=== PATIENT | male | born 1965 | race African-American/Black ===

== ENCOUNTER 2024-03-10 12:16 | Inpatient (IN) | payer BC ==
[2024-03-10 12:59] VITALS: BMI 23.7
[2024-03-10] MEDS ORDERED: BENZONATATE 200 MG CAPSULE PO PRN (14:21)
[2024-03-10] MEDS ORDERED: BENZOCAINE/MENTHOL (CHLORASEPTIC ) LOZENGE MM PRN (14:21)
[2024-03-10] MEDS ORDERED: IBUPROFEN 600 MG TABLET (FP) PO PRN (14:21)
[2024-03-10] MEDS ORDERED: MAG HYDROX/AL HYDROX/SIMETH 30 ML UNIT-DOSE CUP PO PRN (14:21)
[2024-03-10] MEDS ORDERED: guaiFENesin 600 MG TABLET.ER (FP) PO PRN (14:21)
[2024-03-10] MEDS ORDERED: NALOXONE (NARCAN) HCL 4 MG/0.1 ML SPRAY NS PRN (14:21)
[2024-03-10] MEDS ORDERED: ACETAMINOPHEN 325 MG TABLET (FP) PO PRN (14:21)
[2024-03-10] MEDS ORDERED: LOPERAMIDE HCL 2 MG CAPSULE PO PRN (14:21)
[2024-03-10] MEDS ORDERED: hydrOXYzine PAMOATE 25 MG CAPSULE (FP) PO PRN (14:21)
[2024-03-10] MEDS ORDERED: NICOTINE POLACRILEX 2 MG GUM BUC PRN (14:21)
[2024-03-10] MEDS ORDERED: MAGNESIUM HYDROX 2400MG/30ML ORAL SUSPENSION 30 ML CUP PO PRN (14:21)
[2024-03-10] MEDS ORDERED: IBUPROFEN 400 MG TABLET (FP) PO PRN (14:21)
[2024-03-10] MEDS ORDERED: NICOTINE POLACRILEX 2 MG LOZENGE BC PRN (14:21)
[2024-03-10] MEDS ORDERED: POLYETHYLENE GLYCOL (HEALTHYLAX) 3350 17 GM PACKET PO PRN (14:21)
[2024-03-10] MEDS ORDERED: TUBERCULIN PPD 5 TU/0.1ML VIAL ID ONE (18:50)
[2024-03-10] MEDS: MELATONIN 5 MG TABLETS PO SCH (21:31)
[2024-03-10] MEDS: THIAMINE 100 MG TABLET PO SCH (21:31)
[2024-03-11] MEDS: CITALOPRAM HYDROBROMIDE 20 MG TABLET PO SCH (09:29)
[2024-03-11] MEDS: PRENATAL VITAMINS W/ FOLIC ACID TABLET (FP) PO SCH (09:29)
[2024-03-11 14:28] LABS: URINE APPEARANCE CLEAR; URINE BILIRUBIN NEGATIVE (NEGATIVE); URINE COLOR YELLOW; URINE GLUCOSE (UA) NEGATIVE (NEGATIVE); URINE KETONE NEGATIVE (NEGATIVE); URINE LEUK ESTERASE NEGATIVE (NEGATIVE); URINE NITRITE NEGATIVE (NEGATIVE); URINE PROTEIN NEGATIVE (NEGATIVE); URINE UROBILINOGEN 0.2 mg/dL (0.2-1.0)
[2024-03-11 14:33] LABS: CHLORIDE 111 mmol/L (98-107); POTASSIUM 4.2 mmol/L (3.5-5.1); SODIUM 143 mmol/L (136-145)
[2024-03-11 14:34] LABS: HEMATOCRIT 43.9 % (35.4-49); HEMOGLOBIN 14.2 GM/dL (11.7-16.9); MCH 30.5 pg (25.7-33.7); MCHC 32.4 g/dl (32.0-35.9); MEAN CELL VOLUME 94.1 fl (80-96); PLATELET COUNT 216 10^3/uL (134-434); RBC 4.67 M/mm3 (4.00-5.60); RDW 15.5 % (11.9-15.9); WHITE BLOOD COUNT 5.3 K/mm3 (4.0-10.0)
[2024-03-11 14:40] LABS: BLOOD UREA NITROGEN 10.7 mg/dL (7-18)
[2024-03-11 14:53] LABS: ALBUMIN 3.5 g/dl (3.4-5.0); ANION GAP 4 mmol/L (4-13); CO2 28 mmol/L (21-32); GLUCOSE,RANDOM 85 mg/dL (74-106)
[2024-03-11 14:54] LABS: CREATININE 1.2 mg/dL (0.55-1.3)
[2024-03-11 14:55] LABS: SGOT/AST 41 U/L (15-37); SGPT/ALT 52 U/L (13-61)
[2024-03-11 14:56] LABS: BILIRUBIN,TOTAL 0.8 mg/dL (0.2-1); TOT PROT 6.3 g/dl (6.4-8.2)
[2024-03-11 14:57] LABS: ALK PHOS 107 U/L (45-117)
[2024-03-11] MEDS: DIVALPROEX NA *ER* EXTEND REL 500 MG TABLET.SA (FP) PO SCH (21:15)
[2024-03-11] MEDS: QUEtiapine FUMARATE 50 MG TABLET PO SCH (21:35)
[2024-03-13] MEDS: BUDESONIDE/FORMETEROL FUMARATE 160/4.5 mcg INHALER IH SCH (22:55)
[2024-03-15] MEDS: QUEtiapine FUMARATE 50 MG TABLET PO PRN (21:11)
[2024-03-18 06:53] VITALS: RESP 18
[2024-03-18] MEDS: ALBUTEROL SO4 HFA INHALER IH PRN (17:41)
[2024-03-18] MEDS ORDERED: BENZONATATE 200 MG CAPSULE PO PRN (18:04)
[2024-03-18] MEDS: OXYMETAZOLINE 0.05% NASAL SOLUTION 15 ML BOTTLE NS PRN (21:11)
[2024-03-18] MEDS: QUEtiapine FUMARATE 100 MG TABLET (FP) PO PRN (21:13)
[2024-03-18] MEDS: ACAMPROSATE CALCIUM 333 MG TABLET.DR PO SCH (21:51)
[2024-03-18] MEDS: BACLOFEN 10 MG TABLET (FP) PO SCH (21:52)
[2024-03-19] MEDS: guaiFENesin 600 MG TABLET.ER (FP) PO PRN (06:28)
[2024-03-19 06:46] VITALS: BP 125/77; PULSE 77; TEMP 98.2
[2024-03-19] MEDS: NALOXONE (NYS OPIOID OVERDOSE PROGRAM) 4 MG/0.1 ML SPRAY NS SCH (09:09)
== END 2024-03-19 09:24 | disposition home or self-care (01) | DRG 772 ==
LOC: YASAS 12:16 → Y5N 15:30
PROVIDERS: ADMIT Psychiatry & Neurology Pain Medicine; ATTEND Psychiatry & Neurology Pain Medicine
PROC: HZ42ZZZ Group Counseling for Substance Abuse Treatment, Cognitive-Behavioral (ICD-10-PCS; principal; 2024-03-10)
DX: F10.20 Alcohol dependence, uncomplicated (principal); F12.20 Cannabis dependence, uncomplicated; F17.210 Nicotine dependence, cigarettes, uncomplicated; F25.9 Schizoaffective disorder, unspecified; F31.9 Bipolar disorder, unspecified; F19.24 Other psychoactive substance dependence with psychoactive substance-induced mood disorder; U07.1 COVID-19; I10 Essential (primary) hypertension; J06.9 Acute upper respiratory infection, unspecified; Z62.810 Personal history of physical and sexual abuse in childhood; Z63.8 Other specified problems related to primary support group; Z88.0 Allergy status to penicillin
CPT/HCPCS: 0241U-QW; 36415; 80053; 80164; 80305; 80307; 81003; 85027; 86780; 87811; 93005; 93010; J0475